=== PATIENT | female | born 1975 | race Caucasian/White ===

== ENCOUNTER 2022-11-18 10:35 | Outpatient (OUT) | payer OTHER, SELFPAY | END 2022-11-18 10:36 | disposition home or self-care (01) | LOC: LAB 10:40 | PROVIDERS: PCP Family Medicine; Visit Provider Internal Medicine Rheumatology | DX: Z53.8 Procedure and treatment not carried out for other reasons (principal); M19.90 Unspecified osteoarthritis, unspecified site; Z79.899 Other long term (current) drug therapy; M06.9 Rheumatoid arthritis, unspecified ==